=== PATIENT | female | born 2000 | race Caucasian/White ===

== ENCOUNTER 2025-07-24 20:33 | Emergency (ER) | payer BC ==
[2025-07-24] MEDS ORDERED: Lidocaine 1%/Epinephrine 1:100K 10 ML VIAL ONE (21:09)
== END 2025-07-24 21:50 | disposition home or self-care (01) ==
LOC: BURERS 20:33
DX: S61.300A Unspecified open wound of right index finger with damage to nail, initial encounter (principal); X58.XXXA Exposure to other specified factors, initial encounter
CPT/HCPCS: 11750